=== PATIENT | male | born 1955 | race Caucasian/White ===

== ENCOUNTER 2020-07-27 16:26 | Emergency (ER) | payer OTHER, SELFPAY ==
[2020-07-27 16:30] VITALS: BP 163/70; PULSE 64; RESP 20; TEMP 36.8; O2SAT 100; BMI 54.6
[2020-07-27 19:39] VITALS: RESP 22; TEMP 36.6; O2SAT 95
[2020-07-27 19:44] VITALS: BP 120/66
--- NOTE | 2020-07-27 20:27 | ED_ITS ---
HPI - Neuro Symptoms/Deficit General Chief Complaint: Neuro Symptoms/Deficit Stated Complaint: head pain facial numbness Time Seen by Provider: 07/27/20 20:17 Source: patient Mode of arrival: ambulatory Limitations: no limitations History of Present Illness HPI Narrative: Patient comes to emergency room complaining of left-sided numbness, tingling, and left-sided mouth drooping. Patient states all his symptoms started 3 days ago. Patient states that he cannot move his eyebrow or from his forehead. Patient denies any recent illnesses. Related Data Previous Rx's Medication Instructions Recorded prednisone 5 mg PO DAILY #10 tab 07/27/20 prednisone 50 mg PO DAILY #5 tab 07/27/20 valacyclovir See Rx Instructions .ROUTE 07/27/20 .COMPLEX 10 Days #50 tab Allergies Allergy/AdvReac Type Severity Reaction Status Date / Time No Known Allergies Allergy Verified 07/27/20 19:47 [No Known Allergies*] Review of Systems Review of Systems: Constitutional : No Weight loss, No Fever, No Chills, No Night Sweats, No Fatigue, No Malaise ENT/Mouth : No Hearing loss, No Ear Pain, No Nasal Congestion, No Sinus Pain, No Hoarseness, No sore throat, No Rhinorrhea, No Swallowing Difficulty Eyes: No Eye Pain, No Swelling, No Redness, No Foreign Body, No Discharge, No Vision Changes, unable to completely close his left eye Cardiovascular : No Chest Pain, No SOB, No Dyspnea on Exertion, No Orthopnea, No Edema, No Palpitations Respiratory : No Cough, No Sputum, No Wheezing, No Smoke Exposure, No Dyspnea Gastrointestinal : No Nausea, No Vomiting, No Diarrhea, No Constipation, No abdominal Pain, No Hematochezia, No Melena Genitourinary : no irregular bleeding, No Dysuria, No Urinary Frequency, No Hematuria, No Urinary Incontinence, No Urgency, No Flank Pain, No Urinary Flow Changes, No Hesitancy Musculoskeletal : No joint pain, No Myalgias, No Joint Swelling Skin : No Skin Lesions, No rash Neuro : Upper and lower extremities are not affected, right side of the face within normal limits. Patient complaining of last side of the face numbness and tingling and paralysis Psych : No Anxiety/Panic, No Depression, No SI/HI/AH/VH, No Social Issues, Heme/Lymph: No Bruising, No Bleeding,No Lymphadenopathy Endocrine : No Polyuria, No Polydipsia, No Temperature Intolerance [facility] Past Medical History Medical History Cirrhosis Diabetes Hepatitis C virus infection resolved after antiviral drug therapy HTN (hypertension) Sleep apnea Thyroid disease Social History Social History Alcohol intake: never Smoking Status: Never smoker Use of substances other than those prescribed or required for medical reasons: Yes Substance Use Type: Marijuana Advance Directives: No Advance Directives Information Provided: Yes Physical Exam Vital Signs: Vital Signs: Last Vital Signs Temp 98 F 07/27/20 19:39 Pulse 64 07/27/20 16:30 Resp 22 H 07/27/20 19:39 BP 120/66 07/27/20 19:44 Pulse Ox 95 07/27/20 19:39 Body Mass Index 54.6 Appearance: Alert. Oriented X3. No acute distress. Eyes: Pupils equal, round and reactive to light. Patient is unable to close his left eyelid completely. ENT: Pharynx normal. Patient has left-sided mouth droop Neck: Normal inspection. Neck supple. No lymph nodes noted. No crepitus CVS: Normal heart rate and rhythm. Pulses normal. Normal S1 and S2 Respiratory: No respiratory distress. Breath sounds normal. No Wheezing. No rales Abdomen: Soft and nontender. No rigidity. No distention. good BS x4 Skin: Skin warm and dry. Normal skin color. Normal skin turgor. Extremities: No lower extremity edema. Upper and lower extremities within normal limits, strength 5/5 bilaterally. Neuro: Oriented X 3. 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 I discussed with the patient that at night he has to take shot his eye to prevent eye dryness. Patient was given the 1st dose of prednisone and acyclovir. I discussed with the patient that he needs to follow up with his primary care physician, as he may need physical therapy to regain full facial muscle function Discharge Plan Discharge Clinical Impression: Facial paralysis/[place] palsy Patient Disposition: Home, Self-Care Instructions: Carmichael Palsy (ED) Additional Instructions: Please follow-up with your primary care physician tomorrow. If you have any worsening or new symptoms, please return to the emergency room or call 911 Prescriptions: New prednisone 50 mg tablet 50 mg PO DAILY Qty: 5 RF: 0 prednisone 5 mg tablet 5 mg PO DAILY Qty: 10 RF: 0 valacyclovir 500 mg tablet See Rx Instructions .ROUTE .COMPLEX 10 Days Qty: 50 RF: 0
[2020-07-27] MEDS: predniSONE 20 MG TABLET 60 MG PO (20:49)
== END 2020-07-27 20:56 | disposition home or self-care (01) ==
PROVIDERS: Emergency Provider Emergency Medicine; PCP Internal Medicine
DX: G51.0 Bell's palsy (principal); M79.642 Pain in left hand; R20.0 Anesthesia of skin; Z79.899 Other long term (current) drug therapy
CPT/HCPCS: 99284

== ENCOUNTER 2020-08-06 14:03 | Inpatient (IN) | payer OTHER, SELFPAY ==
--- NOTE | ~2020-08-06 | US_ITS ---
EXAMINATION: US VENOUS ULTRASOUND WITH DOPPLER LOWER EXTREMITY, RIGHT CLINICAL INFORMATION: Erythema and swelling. COMPARISON: Ipsilateral comparison dated 11/29/2005. Contralateral comparison dated 05/11/2018. TECHNIQUE: Ultrasound of the deep veins is performed from the hip to the calf with compression sonography and color and pulse Doppler assessment. Spectral analysis with color-flow imaging is performed. FINDINGS: There is normal venous compression and respiratory variation and augmented flow. The visualized common femoral vein, superficial femoral vein, profunda femoral vein, popliteal vein, and the trifurcation region shows no evidence of deep venous thrombosis. There is no significant popliteal fossa cyst. If the patient's symptoms persist, followup ultrasound in 5 days 7 days might be of value to exclude proximal propagation from a non-visualized calf vein. Again seen are enlarged inguinal lymph nodes. US/US venous duplex LE RT IMPRESSION: * No DVT demonstrated in the right lower extremity. * Enlarged inguinal lymph nodes present. On the contralateral DVT study from 05/11/2018, prominent left inguinal lymph nodes are present as well. As such, suspect the adenopathy relates to increased lymphatic return in setting of chronic lower extremity edema.
[2020-08-06 14:22] VITALS: BP 151/67; PULSE 63; RESP 19; TEMP 35.8; O2SAT 96; BMI 55.0
--- NOTE | 2020-08-06 15:57 | ED.GENADULT ---
HPI - General Adult General Chief complaint: Extremity Problem Stated complaint: R LEG INFECTION Time Seen by Provider: 08/06/20 15:32 Source: patient Mode of arrival: ambulatory Limitations: no limitations History of Present Illness HPI narrative: 65-year-old male who presents emergency department for evaluation of possible cellulitis of his right lower extremity. Patient states that he has had cellulitis at least 4-5 times in the past, usually occurring in the right lower extremity but he has had in the left lower extremity as well. Patient states that he was last hospitalized for cellulitis in May of 2018. Patient states the last 2 weeks he has noticed increased redness and swelling is light lower extremities. States that he does have a kitten that may have scratched his right lower extremity 2 weeks prior. The patient also has significant peripheral edema of his lower extremities and he states that he is noncompliant with his Lasix since that makes him urinate frequently. He states that 2 weeks prior, his right lower extremity was swollen and weeping fluid and he restarted his furosemide 40 mg daily. He states that over the last 1-2 days the legs become more swollen, more red and painful. He has also noted subjective fever with shaking chills and increased fatigue. The patient was seen in the emergency department on 07/27/2020 for Carmichael's palsy. He told me that he was taking an antibiotic however in reviewing the record, he was treated with prednisone and valacyclovir, no antibiotic was prescribed. He does not have a history of MRSA and has not been on antibiotics over the past 2 months. The patient has not had a COVID-19 infection during this pandemic. States the received the [email or web address] COVID 19 vaccination with the 2nd shot given on 06/04/2020. Related Data Previous Rx's Medication Instructions Recorded prednisone 5 mg PO DAILY #10 tab 07/27/20 prednisone 50 mg PO DAILY #5 tab 07/27/20 valacyclovir See Rx Instructions .ROUTE 07/27/20 .COMPLEX 10 Days #50 tab Allergies Allergy/AdvReac Type Severity Reaction Status Date / Time No Known Allergies Allergy Verified 07/27/20 19:47 [No Known Allergies*] Review of Systems Review of Systems: Yes all other systems are reviewed and are negative Neurologic: Reports Abnormal speech present (Dysarthric secondary to Carmichael's palsy) [facility] Past Medical History [facility] Narrative: Past medical history: Diabetes, hypertension, hepatitis-C/cirrhosis treated, CHF, Carmichael's palsy. Past surgical history: Hernia repair, right leg arterial bypass (?). Social history: The patient denies tobacco use, he denies alcohol use, he smokes marijuana occasionally. Medical History Cirrhosis Diabetes Hepatitis C virus infection resolved after antiviral drug therapy HTN (hypertension) Sleep apnea Thyroid disease Social History Social History Alcohol intake: never Substance Use Type: Marijuana Advance Directives: Yes Advance Directives Information Provided: No Advance Directives on File: No Physical Exam Vital Signs: Vital Signs: Last Vital Signs Temp 96.4 F L 08/06/20 14:22 Pulse 63 08/06/20 14:22 Resp 19 08/06/20 14:22 BP 151/67 H 08/06/20 14:22 Pulse Ox 96 08/06/20 14:22 Body Mass Index 55.0 Const: General: cooperative Nutritional Appearance: obese morbidly obese Orientation/consciousness: oriented to person and oriented to place Limitations: no limitations HENMT: Head: Yes normal to inspection, Yes normocephalic and Yes atraumatic Ears: external ears normal General nose exam: Normal external nose present Face and sinus: Yes normal facial exam Mouth: Normal oral and palatal mucosa present Throat: Yes posterior oropharynx normal Eyes: Periorbital: periorbital findings normal Eyelids: Yes eyelids normal Conjunctivae: conjunctivae normal Sclerae: sclerae normal Corneas: corneas normal Pupils: Equal, round and reactive pupils present Direct Ophthalmoscopy: normal light reflex Neck: Neck: Yes full ROM, Yes no lymphadenopathy, Yes no meningeal signs, Yes trachea midline and Yes supple Chest: Chest palpation & inspection: normal inspection of the chest and normal palpation of entire chest wall Resp: Effort & Inspection: normal respiratory effort and able to speak in complete sentences Auscultation: clear to auscultation bilaterally Cardio: Rate: regular rate Rhythm: regular rhythm Heart sounds: S1 normal heart sound present, S2 normal heart sound present and no murmurs GI: Inspection: Yes normal to inspection Palpation (GI): Soft to palpation, nontender, no guarding, not rigid and No hepatosplenomegaly present : General: Yes no CVA tenderness Back/Spine/Pelvis: Back: no CVA tenderness Cervical Spine: normal cervical lordosis Thoracic/Lumbar Spine: thoracic and lumbar spine normal to inspection Neuro: Other: Left facial droop with involvement of the upper and lower face, inability to close left eye completely, inability to lift the left corner of his mouth when smiling consistent with peripheral cranial nerve 7 palsy General: oriented to person, oriented to place and no meningeal signs Cranial nerves: Yes Equal, round and reactive pupils present Cognition (Neuro): normal cognition Speech: Abnormal speech present (Dysarthric secondary to Carmichael's palsy) Motor exam (neuro): 5/5 motor strength present throughout Extrem: Other: Left lower extremity is 1/2 times the size of the right lower extremity from the knee down to the foot. There is dry, brawny skin over both lower extremities. The left lower extremity has erythema from the foot to just below the knee which is warm to touch and blanches with pressure. Patient also has a patch of erythema to the right anterior thigh area which is warm to the touch. General: Yes full ROM Psych: Appearance: well kempt Mental Status: mental status grossly normal Speech and movement: Normal speech and movement present Affect: normal affect Attitude: cooperative Thought process: Normal thought process present Thought content: Normal thought content present Course Course Course Narrative: 65-year-old male who presents emergency department for evaluation of worsening cellulitis of the right lower extremity x2 weeks with worsening of symptoms over the last 2-3 days. Patient also complains systemic symptoms which include subjective fever, shaking chills and fatigue. The patient has had multiple episodes of cellulitis of his right lower extremity in the past but is not been on antibiotics in over 2 months and he does not have a history of MRSA. Patient is currently taking prednisone and valacyclovir for a left Carmichael's palsy diagnosed 2 weeks prior. I did order a CBC, CMP, lactic acid, coag studies, and blood cultures on the patient. The patient was also ordered to get a Doppler ultrasound of the left lower extremity to rule out DVT. The patient will be treated with Ancef 2 g IV . 1634: The patient's laboratory evaluation and ultrasound are pending. At the end of my shift, the patient's care was turned over to my colleague, Dr. Hilton. Medical Decision Making Lab Data Result diagrams: 08/06/20 16:13 08/06/20 16:13 Discharge Plan Discharge Prescriptions: No Action prednisone 50 mg tablet 50 mg PO DAILY Qty: 5 RF: 0 prednisone 5 mg tablet 5 mg PO DAILY Qty: 10 RF: 0 valacyclovir 500 mg tablet See Rx Instructions .ROUTE .COMPLEX 10 Days Qty: 50 RF: 0
[2020-08-06 16:23] LABS: Basophils Percent Auto 0.2 % (0-2); Eosinophils Absolute Auto 0.1 X10*3/uL (0.0-0.4); Hematocrit 39.7 % (42-52); Hemoglobin 13.2 g/dl (14.0-18.0); Imm Gran Abs Auto 0.07 X10*3/uL (0.00-0.03); Imm Gran Pct Auto 1.3 % (0.0-0.4); Lymphocytes Absolute Auto 0.5 X10*3/uL (1.2-4.9); Lymphocytes Percent Auto 8.7 % (20-40); MANUAL DIFF FLAG SCAN; Mean Corpuscular HGB Conc 33.2 g/dl (31.0-36.0); Mean Corpuscular Hemoglobin 34.3 pg (27.0-33.0); Mean Corpuscular Volume 103.1 fL (80-98); Mean Platelet Volume 10.7 fL (9.4-12.4); Monocytes Absolute Auto 0.6 X10*3/uL (0.1-1.2); Neutrophils Absolute Auto 4.3 X10*3/uL (2.0-8.3); Neutrophils Percent Auto 76.8 % (45-73); Platelet Count 76 X10*3/uL (160-400); Red Blood Count 3.85 X10*6/uL (4.60-5.80); Red Cell Distribution Width 14.1 % (11.0-16.0); SCAN SMEAR FLAG 1; White Blood Count 5.5 X10*3/uL (4.8-10.8)
[2020-08-06 16:30] LABS: INTERNATIONAL NORM RATIO 1.3 (0.9-1.1); Prothrombin Time 15.8 SEC (10.8-13.0)
[2020-08-06 16:33] LABS: Partial Thromboplastin Time 29.9 SEC (24.1-38.0)
[2020-08-06 16:38] LABS: COVID-19 Test Negative (Negative)
[2020-08-06 16:46] LABS: Alanine Aminotransferase 54 U/L (0-40); Albumin Level 3.1 g/dL (3.5-5.0); Alkaline Phosphatase 103 U/L (39-117); Anion Gap 12 (12-20); Aspartate Amino Transferase 59 U/L (5-37); Bilirubin Total 3.2 mg/dL (0.0-1.0); Blood Urea Nitrogen 17 mg/dL (9-16); Calcium 8.7 mg/dL (8.4-10.2); Carbon Dioxide 30 mmol/L (22-29); Chloride 97 mmol/L (96-108); Creatinine Clr Calc Pharmacy 118.7; Estimated Glomerular Filt Rate > 60; Glucose Random 260 mg/dL (60-115); Lactic Acid 2.4 mmol/L (0.5-2.0); Lipase 28 U/L (8-78); Potassium 3.4 mmol/L (3.3-5.1); Sodium 136 mmol/L (135-145); Total Protein 7.2 g/dL (6.5-8.0)
[2020-08-06] MEDS: ceFAZolin Sodium/Dextrose,Iso 2 GM/50 ML PIGGYBACK IV (16:46)
[2020-08-06 16:48] LABS: SLIDE REVIEW VERIFIED
[2020-08-06 16:58] LABS: Glucose Urine UA NEG (NEG); Leukocyte Esterase Urine NEG (NEG); Nitrite Urine NEG (NEG); Urine Blood NEG (NEG); Urine Ketones NEG (NEG); Urine Protein NEG (NEG-TRACE)
[2020-08-06 16:59] LABS: Appearance Urine CLEAR; Color Urine YELLOW
[2020-08-06 18:19] LABS: Reflex Lactate? Lactic Acid Added
[2020-08-06 18:26] VITALS: BP 155/44; PULSE 60; RESP 18
--- NOTE | 2020-08-06 18:27 | P.HPHOSP_ITS ---
History of Present Illness Date of Service: 08/06/20 Chief Complaint: rLE redness 65M presented with 2 weeks of right lower extremity erythema, worsening swelling, pain. Erythema reaches upper thigh. Patient reports symptoms began after cat scratch. He reports subjective fevers that he took Tylenol for. Patient has a history of lymphedema status post venous bypass surgery. He denies any use of outpatient antibiotics. Reporting it to the ED due to non improvement. Of note patient was recently seen in the emergency department on 07/27/2020 for Carmichael's palsy, at that time was started on prednisone and vala cyclovir, he is still showing left facial paralysis. Review of Systems Review of Systems: Constitutional:subjective fever, denies Chills Eyes: denies blurry vision ENT: denies sore throat CVS: denies chest pain Respiratory: Denies dyspnea GI: no abdominal pain : denies dysuria MSK: denies neck pain Skin: see hpi Neuro: denies specific motor weakness Psych: denies suicidal ideation Endocrine: denies heat/cold intoleratnce Hematologic: denies easy bleeding Allergy: denies hives [facility] Medical History Chronic acquired lymphedema Cirrhosis Diabetes Hepatitis C virus infection resolved after antiviral drug therapy HTN (hypertension) Sleep apnea Thyroid disease Family history: reviewed and not pertinent Social History (Updated 08/06/20 @ 18:30 by Christopher Shetty MD) Alcohol intake: former Patient Tobacco Use Status: Former Tobacco user Substance Use Type: Marijuana Advance Directives: Yes Advance Directives Information Provided: No Advance Directives on File: No Meds Allergies Allergy/AdvReac Type Severity Reaction Status Date / Time No Known Allergies Allergy Verified 07/27/20 19:47 [No Known Allergies*] Home Medications Medication Instructions Recorded Confirmed Last Taken Type amlodipine 1 tab PO DAILY 08/06/20 08/06/20 Unknown History levothyroxine 1 tab PO DAILY 08/06/20 08/06/20 Unknown History propranolol 1 tab PO DAILY 08/06/20 08/06/20 Unknown History spironolactone 25 mg PO 08/06/20 Unknown History torsemide mg PO 08/06/20 Unknown History Physical Exam Vital Signs and Narrative: Vital Signs: Last Vital Signs Temp 96.4 F L 08/06/20 14:22 Pulse 60 08/06/20 18:26 Resp 18 08/06/20 18:26 BP 155/44 H 08/06/20 18:26 Pulse Ox 96 08/06/20 14:22 Body Mass Index 55.0 General: no acute distress HEENT: atraumatic Neck: normal to visual inspection CVS: S1, S2, RRR Resp: CTA bilateral Chest: non tender GI: soft, non tender, non distended : no CVA tenderness Skin: RLE edema, erythema extending to upper thigh Extremities: R>L edema Neuro: Oriented X3, grossly intact Psych: cooperative Results Labs CBC and Chem 7: 08/06/20 16:13 08/06/20 16:13 Labs: Laboratory Results - last 24 hr 08/06/20 08/06/20 08/06/20 16:13 16:13 16:13 MCV 103.1 H MCH 34.3 H MCHC 33.2 RDW 14.1 Plt Count 76 L MPV 10.7 Immature Gran % (Auto) 1.3 H Neut % (Auto) 76.8 H Lymph % (Auto) 8.7 L Armstrong % (Auto) 11.0 Eos % (Auto) 2.0 Baso % (Auto) 0.2 Lymph # (Auto) 0.5 L Armstrong # (Auto) 0.6 Eos # (Auto) 0.1 Baso # (Auto) 0.0 Abs Immat Gran (auto) 0.07 H Absolute Neuts (auto) 4.3 Absolute Nucleated RBC 0.000 Nucleated RBC % (auto) 0.0 Smear Tech's Comments VERIFIED PT 15.8 H INR 1.3 H APTT 29.9 Anion Gap 12 Estim Creat Clear Calc 118.7 Estimated GFR > 60 Random Glucose 260 H Lactic Acid Calcium 8.7 Total Bilirubin 3.2 H AST 59 H ALT 54 H Alkaline Phosphatase 103 Total Protein 7.2 Albumin 3.1 L Lipase 28 Urine Color Urine Appearance Urine pH Ur Specific [place] Urine Protein Urine Glucose (UA) Urine Ketones Urine Blood Urine Nitrite Ur Leukocyte Esterase COVID-19 ([facility]) COVID-19 Clin Com 08/06/20 08/06/20 08/06/20 16:13 16:13 16:50 MCV MCH MCHC RDW Plt Count MPV Immature Gran % (Auto) Neut % (Auto) Lymph % (Auto) Armstrong % (Auto) Eos % (Auto) Baso % (Auto) Lymph # (Auto) Armstrong # (Auto) Eos # (Auto) Baso # (Auto) Abs Immat Gran (auto) Absolute Neuts (auto) Absolute Nucleated RBC Nucleated RBC % (auto) Smear Tech's Comments PT INR APTT Anion Gap Estim Creat Clear Calc Estimated GFR Random Glucose Lactic Acid 2.4 H* Calcium Total Bilirubin AST ALT Alkaline Phosphatase Total Protein Albumin Lipase Urine Color YELLOW Urine Appearance CLEAR Urine pH 7.0 Ur Specific [place] 1.010 Urine Protein NEG Urine Glucose (UA) NEG Urine Ketones NEG Urine Blood NEG Urine Nitrite NEG Ur Leukocyte Esterase NEG COVID-19 ([facility]) Negative COVID-19 Clin Com See Note Imaging Radiologist's Impressions: Impressions Venous Duplex 08/06/20 15:53 IMPRESSION: * No DVT demonstrated in the right lower extremity. * Enlarged inguinal lymph nodes present. On the contralateral DVT study from 05/11/2018, prominent left inguinal lymph nodes are present as well. As such, suspect the adenopathy relates to increased lymphatic return in setting of chronic lower extremity edema. Assessment and Plan (1) Cellulitis: Qualifiers: Laterality: right Site of cellulitis: extremity Site of cellulitis of extremity: lower extremity Qualified Code(s): L03.115 - Cellulitis of right lower limb Status: Acute (2) Chronic acquired lymphedema: Status: Acute 65M presented with right lower extremity swelling and erythema RLE cellulitis with history of cat scratch and lymphedema vanco f/u cultures ID eval wraps recent bells palsy tape eye shut at night compensated liver cirrhosis multifactorial - history of ETOH dependence, FUNG, HCV s/p treatment aldactone propanolol HTN amlodipine DM insulin hypothyroid synthroid morbid obesity weight loss
[2020-08-06 19:35] LABS: ~Lactic Acid-LAB USE ONLY 1.8 mmol/L (0.5-2.0)
--- NOTE | 2020-08-06 19:42 | PC.NURSE ---
Report called to RN. Patient pending transfer to floor.
[2020-08-06 20:00] VITALS: BP 143/70; PULSE 60; RESP 20; TEMP 36.3; O2SAT 96
[2020-08-06 20:37] LABS: Glucose, Whole Blood 174 mg/dL (60-115)
[2020-08-06] MEDS: vancomycin HCL 1,250 MG in 0.9 % Sodium Chloride 250 ML 166.67 MG IV (20:58)
[2020-08-06] MEDS: 0.9 % Sodium Chloride Flush 3 ML SYRINGE IVFLUSH (20:59)
[2020-08-06] MEDS: Insulin Lispro 100 UNIT/ML 3 ML VIAL SUBCUT (21:03)
[2020-08-06] MEDS: Triamcinolone Acet 0.1 % Cream 15 GM TUBE 1 APPL TOPICAL (21:04)
[2020-08-07] VITALS: BP 144/78; PULSE 55; RESP 18; TEMP 36.4; O2SAT 100
[2020-08-07 04:00] VITALS: BP 152/77; PULSE 55; RESP 20; TEMP 36.5; O2SAT 97
[2020-08-07 04:34] LABS: Hematocrit 36.7 % (42-52); Hemoglobin 12.4 g/dl (14.0-18.0); Mean Corpuscular HGB Conc 33.8 g/dl (31.0-36.0); Mean Corpuscular Hemoglobin 34.7 pg (27.0-33.0); Mean Corpuscular Volume 102.8 fL (80-98); Mean Platelet Volume 10.6 fL (9.4-12.4); Red Blood Count 3.57 X10*6/uL (4.60-5.80); Red Cell Distribution Width 14.2 % (11.0-16.0); White Blood Count 4.5 X10*3/uL (4.8-10.8)
[2020-08-07 04:35] LABS: Platelet Count 67 X10*3/uL (160-400)
[2020-08-07 05:00] LABS: Anion Gap 11 (12-20); Blood Urea Nitrogen 14 mg/dL (9-16); Calcium 8.2 mg/dL (8.4-10.2); Carbon Dioxide 30 mmol/L (22-29); Chloride 100 mmol/L (96-108); Creatinine Clr Calc Pharmacy 136.1; Estimated Glomerular Filt Rate > 60; Glucose Random 150 mg/dL (60-115); Potassium 3.4 mmol/L (3.3-5.1); Sodium 138 mmol/L (135-145)
[2020-08-07] MEDS: Levothyroxine Sodium 200 MCG TABLET PO (07:21)
[2020-08-07] MEDS: vancomycin HCL 1,250 MG in 0.9 % Sodium Chloride 250 ML 166.67 MG IV (07:21)
[2020-08-07] MEDS: 0.9 % Sodium Chloride Flush 3 ML SYRINGE IVFLUSH ×2 (07:22→15:37)
[2020-08-07 07:49] LABS: Glucose, Whole Blood 162 mg/dL (60-115)
[2020-08-07] MEDS: Insulin Lispro 100 UNIT/ML 3 ML VIAL SUBCUT ×4 (07:58→20:37)
[2020-08-07 08:00] VITALS: BP 150/67; PULSE 67; RESP 19; TEMP 36.2; O2SAT 97
[2020-08-07] MEDS: amLODIPine Besylate 5 MG TABLET PO (08:58)
[2020-08-07] MEDS: Spironolactone 25 MG TABLET PO (08:58)
[2020-08-07] MEDS: Propranolol HCL 20 MG TABLET PO (08:58)
--- NOTE | 2020-08-07 08:59 | HO.PM.IMPN ---
Subjective Subjective Date of Service: 08/07/20 Interval History: hard time sleeping last night, otherwise no changes Cardiovascular Cardiovascular: Reports no additional cardiovascular complaints Gastrointestinal Gastrointestinal: Reports no additional gastrointestinal complaints Physical Exam Vital Signs: Vital Signs: Last Vital Signs Temp 97.2 F 08/07/20 08:00 Pulse 67 08/07/20 08:00 Resp 19 08/07/20 08:00 BP 150/67 H 08/07/20 08:00 Pulse Ox 97 08/07/20 08:00 Body Mass Index 55.0 General: AO X 3, no acute distress Resp: CTA bilateral CVS: S1,S2,RRR GI: soft, non tender, non distended Neuro: motor grossly intact Psych: appropriate affect RLE erythema, edema, somewhat improved Objective Data Current Medications Generic Name Dose Route Start Last Admin Trade Name Freq PRN Reason Stop Dose Admin Amlodipine Besylate 5 mg 08/07/20 09:00 08/07/20 08:58 Amlodipine Besylate 5 Mg Tablet PO 5 mg DAILY LISBET Administration Protocol Clindamycin Phosphate 600 mg in 50 mls @ 100 mls/hr 08/07/20 09:00 Cleocin IV Q8H LISBET Levofloxacin 500 mg in 100 mls @ 100 mls/hr 08/07/20 09:00 Levaquin IV Q24H LISBET Insulin Human Lispro 0 unit 08/06/20 21:00 08/07/20 07:58 Insulin Lispro 100 Unit/Ml 3 Ml Vial SUBCUT 2 unit QIDACHS LISBET Administration Protocol Levothyroxine Sodium 200 mcg 08/07/20 09:00 08/07/20 07:21 Levothyroxine Sodium 200 Mcg Tablet PO 200 mcg DAILY LISBET Administration Melatonin 6 mg 08/07/20 04:07 Melatonin 3 Mg Tablet PO BEDTIME PRN Insomnia Propranolol HCl 20 mg 08/07/20 09:00 08/07/20 08:58 Propranolol Hcl 20 Mg Tablet PO 20 mg DAILY LISBET Administration Protocol Rivaroxaban 10 mg 08/07/20 09:00 Rivaroxaban 10 Mg Tablet PO DAILY LISBET Sodium Chloride 3 ml 08/07/20 00:00 08/07/20 07:22 0.9 % Sodium Chloride Flush 3 Ml Syringe IVFLUSH 3 ml QSHIFT LISBET Administration Spironolactone 25 mg 08/07/20 09:00 08/07/20 08:58 Spironolactone 25 Mg Tablet PO 25 mg DAILY LISBET Administration Protocol Triamcinolone Acetonide 1 appl 08/06/20 21:00 08/06/20 21:04 Triamcinolone Acet 0.1 % Cream 15 Gm Tube TOPICAL 1 appl BID LISBET Administration Protocol Labs CBC & Chem 7: 08/07/20 04:11 08/07/20 04:11 Assessment and Plan (1) Cellulitis: Status: Acute Assessment and Plan: 65M presented with RLE erythema and edema RLE cellulitis with history of cat scratch and lymphedema will change to clinda and levaquin for now f/u cultures ID eval wraps recent bells palsy tape eye shut at night compensated liver cirrhosis multifactorial - history of ETOH dependence, FUNG, HCV s/p treatment aldactone propanolol HTN amlodipine DM insulin hypothyroid synthroid morbid obesity weight loss
[2020-08-07] MEDS: levoFLOXacin/D5W 500 MG/100 ML PIGGYBACK 100 MG IV (09:41)
[2020-08-07] MEDS: Rivaroxaban 10 MG TABLET PO (09:41)
[2020-08-07] MEDS: Clindamycin Phosphate/D5W 600 MG/50 ML PIGGYBACK 100 MG IV ×2 (10:51→17:11)
--- NOTE | 2020-08-07 11:02 | MHC.CM.PN ---
IMM 08/07/20, EMR REVIEWED, PT ADMITTED W/CELLULITIS, PT RECENTLY HERE W/BELLS PALSY, STILL HAS SOME LEFT SIDED FACIAL DROOP, CM MET W/PT WO REPORTS HE IS INDEPENDENT WITH CARE, WOULD LIKE TO BE RESTART W/SERVICES HE ONLY HAS MOW THROUGH [facility], PT ALSO REPORTS NO LONGER HAVING VNA AND WOULD LIKE [facility] IF HE NEEDS ONE, PT DOES HACE A [facility] NURSE WHO CHECKS IN WITH HIM EVERY 3MOS, PT HAS A CANE, DIABETIC SUPPLIES & CHECKS BS'S EVERY MORNING, HAS A CPAP, SHOWER CHAIR, RAILS IN BR. PT VERIFIES PCP AND PHARMACY, PT WOULD LIKE TO COMPLETE HCP PRIOR TO D/C. PT REPORTS HE DOES NOT TAKE ANY ANTICOAGULANTS SUCH XERELTO/ELIQUIS OR BABY ASA PER HIS LIVER SPECIALIST AT [facility]. D/C PLAN: HOME VS HOME W/VNA, FAMILY FOR TRANSPORT PCP: MELODY CEDILLO
[2020-08-07 11:45] LABS: Glucose, Whole Blood 256 mg/dL (60-115)
--- NOTE | 2020-08-07 11:48 | MHC.CM.PN ---
CM MET W/PT WhO COMPLETE HCP, PT GIVEN ORIGINAL AND 3 COPIES, COPY UPLOADED TO [employer] AND PLACED IN CHART. HEALTH CARE AGENT: MILAGRO MCDONALD [phone] ALTERNATE: ANNALISA JOHNSON [phone]
[2020-08-07 12:00] VITALS: BP 118/51; PULSE 57; RESP 19; TEMP 36.3; O2SAT 98
[2020-08-07] MEDS: Triamcinolone Acet 0.1 % Cream 15 GM TUBE 1 APPL TOPICAL ×2 (12:03→20:38)
[2020-08-07 15:45] VITALS: BP 127/72; PULSE 56; RESP 20; TEMP 36.1; O2SAT 99
[2020-08-07 16:35] LABS: Glucose, Whole Blood 168 mg/dL (60-115)
[2020-08-07 19:31] VITALS: BP 135/70; PULSE 57; RESP 20; TEMP 36.2; O2SAT 95
[2020-08-07 20:33] LABS: Glucose, Whole Blood 204 mg/dL (60-115)
[2020-08-07] MEDS: Acetaminophen 325 MG TABLET 650 MG PO (20:41)
[2020-08-08] VITALS (8 sets, daily range): BP systolic 120–136; BP diastolic 58–72; PULSE 51–60; RESP 16–20; TEMP 36–36.6; O2SAT 96–99
[2020-08-08] MEDS: Clindamycin Phosphate/D5W 600 MG/50 ML PIGGYBACK 100 MG IV ×3 (00:18→16:46)
[2020-08-08] MEDS: Melatonin 3 MG TABLET 6 MG PO (00:18)
[2020-08-08] MEDS: 0.9 % Sodium Chloride Flush 3 ML SYRINGE IVFLUSH ×3 (00:29→16:46)
[2020-08-08 07:14] LABS: Hematocrit 37.2 % (42-52); Hemoglobin 12.5 g/dl (14.0-18.0); Mean Corpuscular HGB Conc 33.6 g/dl (31.0-36.0); Mean Corpuscular Hemoglobin 34.3 pg (27.0-33.0); Mean Corpuscular Volume 102.2 fL (80-98); Mean Platelet Volume 11.2 fL (9.4-12.4); Red Blood Count 3.64 X10*6/uL (4.60-5.80); Red Cell Distribution Width 14.1 % (11.0-16.0)
[2020-08-08 07:23] LABS: Platelet Count 76 X10*3/uL (160-400)
[2020-08-08 07:23] LABS: Glucose, Whole Blood 159 mg/dL (60-115)
[2020-08-08] MEDS: Insulin Lispro 100 UNIT/ML 3 ML VIAL SUBCUT ×4 (07:32→20:47)
[2020-08-08 07:35] LABS: Anion Gap 12 (12-20); Blood Urea Nitrogen 12 mg/dL (9-16); Calcium 8.2 mg/dL (8.4-10.2); Carbon Dioxide 29 mmol/L (22-29); Chloride 101 mmol/L (96-108); Creatinine Clr Calc Pharmacy 141.3; Estimated Glomerular Filt Rate > 60; Glucose Fasting 166 mg/dL (60-99); Sodium 138 mmol/L (135-145)
[2020-08-08 07:41] LABS: Vancomycin Trough 6.4 mcg/mL (10.0-20.0)
[2020-08-08] MEDS: Triamcinolone Acet 0.1 % Cream 15 GM TUBE 1 APPL TOPICAL ×2 (08:16→20:49)
[2020-08-08] MEDS: Spironolactone 25 MG TABLET PO (08:17)
[2020-08-08] MEDS: Levothyroxine Sodium 200 MCG TABLET PO (08:17)
[2020-08-08] MEDS: Propranolol HCL 20 MG TABLET PO (08:17)
[2020-08-08] MEDS: amLODIPine Besylate 5 MG TABLET PO (08:17)
[2020-08-08] MEDS: Rivaroxaban 10 MG TABLET PO (08:17)
[2020-08-08] MEDS: levoFLOXacin/D5W 500 MG/100 ML PIGGYBACK 100 MG IV (08:51)
--- NOTE | 2020-08-08 09:25 | HO.PM.IMPN ---
Subjective Subjective Date of Service: 08/08/20 Interval History: improving Cardiovascular Cardiovascular: Reports no additional cardiovascular complaints Gastrointestinal Gastrointestinal: Reports no additional gastrointestinal complaints Physical Exam Vital Signs: Vital Signs: Last Vital Signs Temp 96.8 F 08/08/20 07:00 Pulse 60 08/08/20 08:17 Resp 18 08/08/20 07:00 BP 120/62 08/08/20 08:17 Pulse Ox 97 08/08/20 07:00 Body Mass Index 55.0 General: AO X 3, no acute distress Resp: CTA bilateral CVS: S1,S2,RRR GI: soft, non tender, non distended Neuro: motor grossly intact Psych: appropriate affect RLE erythema, edema, continues to improve, has chronic skin changes as well Objective Data Current Medications Generic Name Dose Route Start Last Admin Trade Name Freq PRN Reason Stop Dose Admin Acetaminophen 650 mg 08/07/20 15:41 08/07/20 20:41 Acetaminophen 325 Mg Tablet PO 650 mg Q8H PRN Administration pain Amlodipine Besylate 5 mg 08/07/20 09:00 08/08/20 08:17 Amlodipine Besylate 5 Mg Tablet PO 5 mg DAILY LISBET Administration Protocol Clindamycin Phosphate 600 mg in 50 mls @ 100 mls/hr 08/07/20 09:00 08/08/20 08:54 Cleocin IV Infused Q8H LISBET Infusion Levofloxacin 500 mg in 100 mls @ 100 mls/hr 08/07/20 09:00 08/08/20 08:51 Levaquin IV 100 mls/hr Q24H LISBET Administration Insulin Human Lispro 0 unit 08/06/20 21:00 08/08/20 07:32 Insulin Lispro 100 Unit/Ml 3 Ml Vial SUBCUT 2 unit QIDACHS LISBET Administration Protocol Levothyroxine Sodium 200 mcg 08/07/20 09:00 08/08/20 08:17 Levothyroxine Sodium 200 Mcg Tablet PO 200 mcg DAILY LISBET Administration Melatonin 6 mg 08/07/20 04:07 08/08/20 00:18 Melatonin 3 Mg Tablet PO 6 mg BEDTIME PRN Administration Insomnia Propranolol HCl 20 mg 08/07/20 09:00 08/08/20 08:17 Propranolol Hcl 20 Mg Tablet PO 20 mg DAILY LISBET Administration Protocol Rivaroxaban 10 mg 08/07/20 09:00 08/08/20 08:17 Rivaroxaban 10 Mg Tablet PO 10 mg DAILY LISBET Administration Sodium Chloride 3 ml 08/07/20 00:00 08/08/20 07:33 0.9 % Sodium Chloride Flush 3 Ml Syringe IVFLUSH 3 ml QSHIFT LISBET Administration Spironolactone 25 mg 08/07/20 09:00 08/08/20 08:17 Spironolactone 25 Mg Tablet PO 25 mg DAILY LISBET Administration Protocol Triamcinolone Acetonide 1 appl 08/06/20 21:00 08/08/20 08:16 Triamcinolone Acet 0.1 % Cream 15 Gm Tube TOPICAL 1 appl BID LISBET Administration Protocol Labs CBC & Chem 7: 08/08/20 06:54 08/08/20 06:54 Microbiology Microbiology Results: Microbiology 08/06/20 16:50 Blood - Venous Blood Culture - Preliminary No growth after 24 hours. 08/06/20 16:13 Blood - Venous Blood Culture - Preliminary No growth after 24 hours. Assessment and Plan (1) Cellulitis: Status: Acute Assessment and Plan: 65M presented with RLE erythema and edema RLE cellulitis with history of cat scratch and lymphedema clinda and levaquin for now, likely one more day IV then dc tomorrow on po cultures negative so far ID eval wraps recent bells palsy tape eye shut at night compensated liver cirrhosis multifactorial - history of ETOH dependence, FUNG, HCV s/p treatment aldactone propanolol HTN amlodipine DM insulin hypothyroid synthroid morbid obesity weight loss
[2020-08-08 11:12] LABS: Glucose, Whole Blood 228 mg/dL (60-115)
[2020-08-08] MEDS: Acetaminophen 325 MG TABLET 650 MG PO (11:46)
--- NOTE | 2020-08-08 13:28 | W.PM.IDCN ---
History of Present Illness Data of Consult Service Date: 08/08/20 Requesting physician: Christopher Shetty Primary Care Provider: Galen Dixon MD HPI Reason for consult: reddened RLE He presents to hospital with increasing redness RLE He was scratched by kitten several days ago and says area became more red He has no fever or chills He was seen in ER on 07/27 with facial droop on left now resolving and treated with Valtrex and steroids for Woodruff palsy He says he gets recurrent cellulits. Review of Systems Review of Systems: Yes all other systems are reviewed and are negative [facility] Past Medical History Medical History Chronic acquired lymphedema Cirrhosis Diabetes Hepatitis C virus infection resolved after antiviral drug therapy HTN (hypertension) Sleep apnea Thyroid disease Family History Family history: reviewed and not pertinent Social History Social History Household Members: None Housing: Apartment Do you presently have visiting nurse or other home services: No Alcohol intake: former Patient Tobacco Use Status: Former Tobacco user Use of substances other than those prescribed or required for medical reasons: Yes Substance Use Type: Marijuana Substance Use Frequency: Occasionally Last Used Substance: Weeks (ago) Currently Displaying Signs/Symptoms of Drug Intoxication Withdrawal: No Any prior treatment program specific to substance use: No Have you been hit, kicked, punched, or otherwise hurt by someone within the past year? If so, by whom?: No Do you feel safe in your current relationship?: No Current Relationship Is there a partner from a previous relationship who is making you feel unsafe now?: No Are you made to feel afraid or neglected: No Advance Directives: Yes Advance Directives Information Provided: No Advance Directives on File: No Advance Directives Date on File: 08/06/20 Do you have thoughts of harming others: None Do you have a plan to hurt others: No Plan Recently lost weight without trying: No Eating poorly because of decreased appetite: No Nutrition Risks: No Nutritional Risk Poor oral hygiene: No service: Yes Current occupational status: retired Meds Allergies Allergy/AdvReac Type Severity Reaction Status Date / Time No Known Allergies Allergy Verified 07/27/20 19:47 [No Known Allergies*] Active Medications: Current Medications Generic Name Dose Route Start Last Admin Trade Name Freq PRN Reason Stop Dose Admin Acetaminophen 650 mg 08/07/20 15:41 08/08/20 11:46 Acetaminophen 325 Mg Tablet PO 650 mg Q8H PRN Administration pain Amlodipine Besylate 5 mg 08/07/20 09:00 08/08/20 08:17 Amlodipine Besylate 5 Mg Tablet PO 5 mg DAILY LISBET Administration Protocol Clindamycin Phosphate 600 mg in 50 mls @ 100 mls/hr 08/07/20 09:00 08/08/20 08:54 Cleocin IV Infused Q8H LISBET Infusion Levofloxacin 500 mg in 100 mls @ 100 mls/hr 08/07/20 09:00 08/08/20 09:50 Levaquin IV Infused Q24H LISBET Infusion Insulin Human Lispro 0 unit 08/06/20 21:00 08/08/20 11:45 Insulin Lispro 100 Unit/Ml 3 Ml Vial SUBCUT 4 unit QIDACHS [facility] Administration Protocol Levothyroxine Sodium 200 mcg 08/07/20 09:00 08/08/20 08:17 Levothyroxine Sodium 200 Mcg Tablet PO 200 mcg DAILY LISBET Administration Melatonin 6 mg 08/07/20 04:07 08/08/20 00:18 Melatonin 3 Mg Tablet PO 6 mg BEDTIME PRN Administration Insomnia Propranolol HCl 20 mg 08/07/20 09:00 08/08/20 08:17 Propranolol Hcl 20 Mg Tablet PO 20 mg DAILY LISBET Administration Protocol Rivaroxaban 10 mg 08/07/20 09:00 08/08/20 08:17 Rivaroxaban 10 Mg Tablet PO 10 mg DAILY LISBET Administration Sodium Chloride 3 ml 08/07/20 00:00 08/08/20 07:33 0.9 % Sodium Chloride Flush 3 Ml Syringe IVFLUSH 3 ml QSHIFT [facility] Administration Spironolactone 25 mg 08/07/20 09:00 08/08/20 08:17 Spironolactone 25 Mg Tablet PO 25 mg DAILY [facility] Administration Protocol Triamcinolone Acetonide 1 appl 08/06/20 21:00 08/08/20 08:16 Triamcinolone Acet 0.1 % Cream 15 Gm Tube TOPICAL 1 appl BID [facility] Administration Protocol Home Medications Medication Instructions Recorded Confirmed Last Taken Type amlodipine 1 tab PO DAILY 08/06/20 08/06/20 Unknown History levothyroxine 1 tab PO DAILY 08/06/20 08/06/20 Unknown History propranolol 1 tab PO DAILY 08/06/20 08/06/20 Unknown History spironolactone 25 mg PO 08/06/20 Unknown History torsemide mg PO 08/06/20 Unknown History Physical Exam Vital Signs: Vital Signs: Last Vital Signs Temp 98 F 08/08/20 11:20 Pulse 58 08/08/20 11:20 Resp 20 08/08/20 11:20 BP 128/58 L 08/08/20 11:20 Pulse Ox 98 08/08/20 11:20 Body Mass Index 55.0 Const: General: cooperative Orientation/consciousness: patient oriented x3 HENMT: Head: Yes normal to inspection Mouth: Normal oral and palatal mucosa present Resp: Effort & Inspection: normal respiratory effort Cardio: Rate: regular rate Rhythm: regular rhythm GI: Inspection: Yes Abdominal panniculus present Skin: General skin exam: no rashes or lesions noted Neuro: General: patient oriented x3 Extrem: Other: RLE erythema Results Labs CBC & Chem 7: 08/08/20 06:54 08/08/20 06:54 Labs: Short CBC 08/08/20 Range/Units 06:54 WBC 5.0 (4.8-10.8) X10*3/uL Hgb 12.5 L (14.0-18.0) g/dl Hct 37.2 L (42-52) % Plt Count 76 L (160-400) X10*3/uL BMP 08/08/20 06:54 Sodium 138 Potassium 4.0 Chloride 101 Carbon Dioxide 29 BUN 12 Creatinine 0.79 Calcium 8.2 L Microbiology Microbiology Results: Microbiology 08/06/20 16:50 Blood - Venous Blood Culture - Preliminary No growth after 24 hours. 08/06/20 16:13 Blood - Venous Blood Culture - Preliminary No growth after 24 hours. Assessment and Plan (1) Cellulitis: Qualifiers: Laterality: right Site of cellulitis: extremity Site of cellulitis of extremity: lower extremity Qualified Code(s): L03.115 - Cellulitis of right lower limb Status: Acute There is concern over strep infection in area or lipodermatosclerosis He has no tinea pedis There is possible strep or staph Would give IV Clindamycin and then transition po Clindamycin day or two with Levaquin for 5-7 days Also consider PCN V 250 bid for prophylaxis indefinitesly Continue Levaquin in case Pasteurella due to cat scratch (2) Chronic acquired lymphedema: Status: Acute
[2020-08-08 16:20] LABS: Glucose, Whole Blood 174 mg/dL (60-115)
[2020-08-08 20:25] LABS: Glucose, Whole Blood 194 mg/dL (60-115)
[2020-08-09] MEDS: 0.9 % Sodium Chloride Flush 3 ML SYRINGE IVFLUSH ×2 (01:30→07:43)
[2020-08-09] MEDS: Acetaminophen 325 MG TABLET 650 MG PO (01:35)
[2020-08-09] MEDS: Melatonin 3 MG TABLET 6 MG PO (01:35)
[2020-08-09] MEDS: Clindamycin Phosphate/D5W 600 MG/50 ML PIGGYBACK 100 MG IV ×2 (01:36→08:31)
[2020-08-09 03:12] VITALS: BP 124/46; PULSE 56; RESP 20; TEMP 36; O2SAT 98
[2020-08-09 07:25] VITALS: BP 125/85; PULSE 59; RESP 18; TEMP 36.3; O2SAT 96
[2020-08-09] MEDS: Insulin Lispro 100 UNIT/ML 3 ML VIAL SUBCUT ×2 (07:43→11:46)
[2020-08-09 08:06] LABS: Glucose, Whole Blood 160 mg/dL (60-115)
[2020-08-09 08:30] VITALS: BP 125/85; PULSE 60
[2020-08-09] MEDS: amLODIPine Besylate 5 MG TABLET PO (08:30)
[2020-08-09] MEDS: Levothyroxine Sodium 200 MCG TABLET PO (08:30)
[2020-08-09] MEDS: Propranolol HCL 20 MG TABLET PO (08:30)
[2020-08-09 08:31] VITALS: BP 125/85; PULSE 60
[2020-08-09] MEDS: Spironolactone 25 MG TABLET PO (08:31)
[2020-08-09] MEDS: Rivaroxaban 10 MG TABLET PO (08:31)
[2020-08-09] MEDS: Triamcinolone Acet 0.1 % Cream 15 GM TUBE 1 APPL TOPICAL (08:38)
--- NOTE | 2020-08-09 09:03 | PM.DS ---
DS: Providers Provider Date of Service: 08/09/20 Date of admission: 08/06/20 18:43 Primary care physician: Galen Dixon MD Consults: 08/06/20 19:48 Consult to Infectious Diseases Routine Consulting Provider: Maria Del Carmen Rouse Reason for consultation: cellulitis, cat scratch, lymphedema 08/06/20 21:24 Consult Respiratory Therapy Routine Reason for consultation: sleep apnes DS: Diagnosis Discharge Diagnosis (1) Cellulitis: Status: Acute (2) Chronic acquired lymphedema: Status: Acute (3) Cirrhosis: Status: Acute (4) Diabetes: Status: Acute DS: Medications Discharge Medications Home Medications: Home Medications Medication Instructions Recorded Confirmed amlodipine 1 tab PO DAILY 08/06/20 08/06/20 levothyroxine 1 tab PO DAILY 08/06/20 08/06/20 propranolol 1 tab PO DAILY 08/06/20 08/06/20 spironolactone 25 mg PO 08/06/20 torsemide mg PO 08/06/20 Previous Rx's Medication Instructions Recorded valacyclovir See Rx Instructions .ROUTE 07/27/20 .COMPLEX 10 Days #50 tab clindamycin HCl 300 mg PO Q8H #6 cap 08/09/20 levofloxacin 500 mg PO DAILY #6 tab 08/09/20 DS: Summary Hospital Course Hospital Course: Patient was admitted for right lower extremity cellulitis in the setting of cat scratch and lymphedema. He was initially treated with vancomycin but this was changed to clindamycin and Levaquin with consultation of Infectious Disease. Patient's cultures were negative. His cellulitis significantly improved. He will continue 2 more days p.o. clindamycin and 6 more days p.o. Levaquin. He recommended to use compression therapy on his lymphedema and weight loss. Time Spent with Patient Time attestation: Total time spent providing and/or coordinating discharge services: Discharge coordination time: Greater than 30 minutes Quality: Stroke Does the patient have a stroke diagnosis?: No Physical Exam Vital Signs: Vital Signs: Last Vital Signs Temp 97.4 F 08/09/20 07:25 Pulse 60 08/09/20 08:31 Resp 18 08/09/20 07:25 BP 125/85 08/09/20 08:31 Pulse Ox 96 08/09/20 07:25 Body Mass Index 55.0 General: AO X 3, no acute distress Resp: CTA bilateral CVS: S1,S2,RRR GI: soft, non tender, non distended Neuro: motor grossly intact Psych: appropriate affect DS: Data Data Completed and Pending Labs on day of discharge: Laboratory Results - last 24 hr 08/08/20 08/08/20 08/08/20 10:55 16:16 20:21 POC Glucose 228 H 174 H 194 H 08/09/20 07:23 POC Glucose 160 H Preliminary micro results at discharge 08/06/20 16:50 Blood Culture - Preliminary Blood - Venous No growth after 48 hours. 08/06/20 16:13 Blood Culture - Preliminary Blood - Venous No growth after 48 hours. Discharge Plan Discharge Patient Disposition: Home, Self-Care Discharge Diagnosis: cellulitis Referrals: Galen Dixon MD [Primary Care Provider] - 1 Week Discharge Medications: New clindamycin HCl 300 mg capsule 300 mg PO Q8H Qty: 6 RF: 0 levofloxacin 500 mg tablet 500 mg PO DAILY Qty: 6 RF: 0 Continued valacyclovir 500 mg tablet See Rx Instructions .ROUTE .COMPLEX 10 Days Qty: 50 RF: 0 torsemide 20 mg tablet PO RF: 0 amlodipine 5 mg tablet 1 tab PO DAILY RF: 0 spironolactone 25 mg tablet 25 mg PO RF: 0 levothyroxine 200 mcg tablet 1 tab PO DAILY RF: 0 propranolol 20 mg tablet 1 tab PO DAILY RF: 0 Discontinued prednisone 50 mg tablet 50 mg PO DAILY Qty: 5 RF: 0 prednisone 5 mg tablet 5 mg PO DAILY Qty: 10 RF: 0 Discharge Orders: Discharge Order (Routine); Ordered 08/09/20 Ordered By: Christopher Shetty Diet: advance to usual diet Activity on Discharge: As tolerated Stand Alone Forms: Patient Portal Discharge page Care Plan Goals: avoid episodes of cellulitis Health Concerns: lymphedema, cellulitis Plan of Treatment: 2 more days of clinda, 6 more days of levaquin, hodan wraps or compression stockings Assessment: see above
--- NOTE | 2020-08-09 09:17 | MHC.CM.PN ---
Addendum entered by Valencia Pizano 08/09/20 10:12: spoke with renard at [facility] informing her of patients discharge home today on two new oral abx, also faxed discharge instructuion to transitions of care for telephonic follow up by [facility] , (verified with patient that he [place] not have [place] Addendum entered by Valencia Pizano 08/09/20 09:29: PATIENT SENT HOME ON TWO NEW MEDICATIONS , INSTRUCTED TO PICK THEM UP AT THE PHARMACY . Original Note: NURSE BONE TENDER NOTE ELECTRONIC MEDICAL RECORD REVIEWED LONG WITH CASE DISCUSSED WITH STAFF NURSE AND MET WITH PATIENT . REVIEWED DISCHARGE ORDERS (NO VNA ORDERED, PT ONLY WANTED [facility] V[facility] IF PHYSICIAN FELT NEEDED AND ORDERED IT) DISCHARGE PLAN HOME NO SERVICES PCP DR CEDILLO PATIENT INSTRUCTED TO CALL FOR APPOINTMENT TO BE SEEN POST HOSPITAL DISCHARGE TRANSPORTATION FAM[facility]. REFERRAL HAS BEEN INIATED BY [employer] [facility]OUGH [facility] REQUEST. LAST IMM 08/07
[2020-08-09] MEDS: levoFLOXacin/D5W 500 MG/100 ML PIGGYBACK 100 MG IV (09:36)
[2020-08-09 11:42] LABS: Glucose, Whole Blood 218 mg/dL (60-115)
== END 2020-08-09 13:54 | disposition home or self-care (01) | DRG 603 ==
LOC: HO.ED 18:11 → HO.EDOVER 18:50 → HO.S3 19:17
PROVIDERS: Admitting Provider Internal Medicine; Emergency Provider Emergency Medicine Emergency Medical Services; PCP Internal Medicine; Visit Provider Internal Medicine
DX: L03.115 Cellulitis of right lower limb (principal); Z68.43 Body mass index [BMI] 50.0-59.9, adult; E11.9 Type 2 diabetes mellitus without complications; E03.9 Hypothyroidism, unspecified; I89.0 Lymphedema, not elsewhere classified; K74.60 Unspecified cirrhosis of liver; G51.0 Bell's palsy; E66.01 Morbid (severe) obesity due to excess calories; Z91.14 Patient's other noncompliance with medication regimen; Z20.822 Contact with and (suspected) exposure to COVID-19; Z79.890 Hormone replacement therapy; Z79.899 Other long term (current) drug therapy
CPT/HCPCS: 36415; 80048; 80053; 80202; 81003; 82947; 83605; 83690; 85025; 85027; 85610; 85730; 87040; 87635; 93971; 96365; 99283; 99285; J0690; J1956; J3370